=== PATIENT | male | born 1945 | race African-American/Black ===

== ENCOUNTER 2016-07-26 06:19 | Emergency (ER) | payer BC, MEDICARE ==
--- NOTE | 2016-07-26 06:47 | ED Physician Chart ---
Chief Complaint/HPI - Patient Information Date Seen:: 07/26/16 Time Seen:: 06:20 Chief Complaint:: Near-Syncope History of Present Illness:: Onset x 1/2 hour [employer] while driving, pt developed near-syncope, vertigo, generalized weakness, double/blurred vision, dizziness, paresthesias, anxious, nervousness, and felt like hyperventillating; Denies Chest Pain, dyspnea, Abdominal Pain, A/N/V/D/C, fever, chills, urinary s/s, LOC, or syncope Allergies:: Allergies Allergy/AdvReac Type Severity Reaction Status Date / Time No Known Allergies Allergy Verified 07/26/16 06:23 Vitals:: Vital Signs - 8 hr 07/26/16 06:20 Temp 98.5 F HR 90 RR 20 BP 143/83 O2 Sat % 98 Historian:: Patient, Family Member Review:: Nurse's Note Reviewed Review of Systems - Review of Systems General/Constitutional: Fever, Chills, No weight loss, Weakness, No diaphoresis , No edema, No loss of appetite Skin: No skin lesions, No rash, No bruising Head: Headache, No light-headedness Eyes: Acuity change, No pain, Diplopia ENT: No earache, Nasal drainage, No sore throat, No tinnitus Neck: No neck pain, No swelling, No thyromegaly, No stiffness, No mass noted Cardio Vascular: No chest pain, Palpitations, No PND, No orthopnea, No edema Pulmonary: No SOB, Cough, No sputum, No wheezing GI: Nausea, Vomiting, Diarrhea, No pain, No melena, No hematochezia, Constipation, No hematemesis G/U: No dysuria, No frequency, No hematuria Musculoskeletal: Bone or joint pain, No back pain, No muscle pain Endocrine: No polyuria, No polydipsia Psychiatric: No prior psych history, No depression, No anxiety, No suicidal ideation, No homicidal ideation, No auditory hallucination, No visual hallucination Hematopoietic: No bruising, No lymphadenopathy Allergic/Immuno: No urticaria, No angioedema Neurological: No syncope, No focal symptoms, Weakness, Paresthesia, Headache, No seizure, Dizziness, No confusion, Vertigo Past Medical History - Past Medical History Obtainable: Yes Past Medical History: Dyslipidemia, ESRD Family History: Diabetes Melitus, HTN Social History: Non Smoker, No Alcohol, No Drug Use, Surgical History: None Psychiatricy History: None Medication: Reviewed Family Medical History - Family Member Mother History Unknown: Yes Physical Exam - Physical Examination General/Constitutional: Awake, Well-developed, well-nourished, Alert, No distress, GCS 15, Non-toxic appearing, Ambulatory Head: Atraumatic Eyes: Lids, conjuctiva normal, PERRL, EOMI Skin: Nl inspection, No rash, No skin lesions, No ecchymosis, Well hydrated, No lymphadenopathy ENMT: External ears, nose nl, Nasal exam nl, Lips, teeth, gums nl Neck: Nontender, Full ROM w/o pain, No JVD, No nuchal rigidity, No bruit, No mass, No stridor Respiratory: Nl effort/Exclusion, Clear to Auscultation, No Wheeze/Rhonchi/Rales Cardio Vascular: RRR, No murmur, gallop, rubs, NL S1 S2 GI: No tenderness/rebounding/guarding, No organomegaly, No hernia, Normal BS's, Nondistended, No mass/bruits, No McBurney tenderness : No CVA tenderness Extremities: No tenderness or effusion, Full ROM, normal strength in all extremities, No edema, Normal digits & nails Neuro/Psych: Alert/oriented, DTR's symmetric, Normal sensory exam, Normal motor strength, Judgement/insight normal, Mood normal, Normal gait, No focal deficits Misc: normal gait, Normal back, No paraspinal tenderness ED Septic Shock - . Is Septic Shock (SBP<90, OR Lactate>4 mmol\L) present?: No - <6hrs of presentation: Vital Signs: Vital Signs - 8 hr 07/26/16 06:20 Temp 98.5 F HR 90 RR 20 BP 143/83 O2 Sat % 98
[2016-07-26 07:20] LABS: % BASOPHILS 0.7 % (0.0-2.0); % EOSINOPHILS 2.9 % (0.0-5.0); % LYMPHOCYTES 19.5 % (20.0-50.0); % MONOCYTES 6.3 % (2.0-10.0); % NEUTROPHILS 70.6 % (40.0-80.0); HEMATOCRIT 38.1 % (39.0-49.0); HEMOGLOBIN 12.6 gm/dL (12.6-17.4); MEAN CELL VOLUME 95.9 fl (80-99); MEAN CORPUSCULAR HEMOGLOBIN 31.8 pg (27.0-31.0); MEAN CORPUSCULAR HGB CONC 33.1 pg (28.0-36.0); MEAN PLATELET VOLUME 7.9 fl; NEUTROPHILE ABSOLUTE 6.4 Th/cmm (1.8-8.0); PLATELET COUNT 275 Th/cmm (150-400); RED BLOOD COUNT 3.97 Mil/cmm (3.80-5.80); RED CELL DISTRIBUTION WIDTH 12.8 % (11.5-20.0); WHITE BLOOD COUNT 9.2 Th/cmm (4.8-10.8)
[2016-07-26 07:28] LABS: INR 0.9 (0.5-1.4); PROTHROMBIN TIME (TEST) 9.4 SECONDS (9.5-11.5)
[2016-07-26 07:32] LABS: ALB/GLOB RATIO 1.5 (1.0-1.8); ALKALINE PHOSPHATASE 55 U/L (34-104); ANION GAP 8.5 (7.0-16.0); BILIRUBIN,TOTAL 0.5 mg/dL (0.3-1.0); BUN - UREA NITROGEN 16 mg/dL (7-25); BUN/CREATININE RATIO 17.8; CALCIUM SERUM 9.4 mg/dL (8.6-10.3); CARBON DIOXIDE 25.6 mEq/L (21.0-31.0); CHLORIDE 102 mEq/L (98-107); CHOLESTEROL 218 mg/dL (<200); CREATININE - SERUM 0.9 mg/dL (0.7-1.3); GLUCOSE 182 mg/dL (70-105); POTASSIUM SERUM 4.1 mEq/L (3.5-5.1); SGOT 40 U/L (13-39); SGPT/ALT 41 U/L (7-52); SODIUM SERUM 132 mEq/L (136-145); TRIGLYCERIDES 286 mg/dL (<150)
[2016-07-26 07:35] LABS: TROP I < 0.01 ng/mL (0.01-0.05)
[2016-07-26 07:48] LABS: BNP < 5.0 pg/mL (5.0-100.0)
[2016-07-26 07:56] LABS: CREATINE KINASE MB 4.7 ng/mL (0.6-6.3)
--- NOTE | 2016-07-26 08:18 | Diagnostic Imaging Report ---
CT scan of the brain without intravenous contrast HISTORY: Stroke, CVA Total DLP equals 673 CTDI equals 35.8 Axial sections were obtained from the base of the skull to the vertex. There is a prominent ventricular system size along with prominence of cerebral sulci and subarachnoid cisterns reflecting atrophy. No acute parenchymal abnormalities. No intracerebral hemorrhage. No mass effect or shift of midline structures. No extra-axial masses or abnormal fluid collections IMPRESSION: 1. No acute abnormalities 2. Mild cerebral atrophy
--- NOTE | 2016-07-26 08:54 | General Progress Note ---
Subjective - Review of Systems Service Date: 07/26/16 Events since last encounter: cc:weakness HPI: pt seen initially w initial h+p by dr mcmillan. he was drivig in his car at 6am and felt onset of weak and dizzy and near- syncopal sensation. no cp. no sob. no JARA. no palpitations. Pt had [place] and was travelling back to [place] w /sis in law when this occurred. He is still not feeling back to [facility] as of 8;50am. no recent fever or illness. no trauma. pt has known hx of high cholesterol (but denies esrd as documented by Dr Gomez) ..denies other pmh including htn or cva or mi or cad. no prior sz or snycope pt denies etoh or smoking or drug use. PE alert/nad. mild htn. mild/mod obese cv rrr no m pulm- cta b abd- s/nt/pos nabs extr no edema neuro- nrml str/sens, eomi, perrla, nrml 2-12 cn, nrml neuro exam. alert- ok historian. fully oriented. RESULTS: ecg nsr 60, no ectopy, nrml st segs. qrs -72. ct head- atrophy, no bleed. LABS: Laboratory Tests 07/26/16 07/26/16 07/26/16 07:10 07:10 07:10 WBC 9.2 RBC 3.97 Hgb 12.6 Hct 38.1 L MCV 95.9 MCH 31.8 H MCHC Differential 33.1 RDW 12.8 Plt Count 275 MPV 7.9 Neutrophils % 70.6 Lymphocytes % 19.5 L Monocytes % 6.3 Eosinophils % 2.9 Basophils % 0.7 PT 9.4 L INR 0.90 Sodium 132 L Potassium 4.1 Chloride 102 Carbon Dioxide 25.6 Anion Gap 8.5 BUN 16 Creatinine 0.9 Est GFR ( Amer) TNP Est GFR (Non-Af Amer) TNP BUN/Creatinine Ratio 17.8 Glucose 182 H Hemoglobin A1c % Calcium 9.4 Total Bilirubin 0.5 AST 40 H ALT 41 Alkaline Phosphatase 55 Creatine Kinase 237 H CK-MB (CK-2) 4.7 Troponin I B-Natriuretic Peptide Total Protein 7.1 Albumin 4.3 Globulin 2.8 Albumin/Globulin Ratio 1.5 Triglycerides 286 H Cholesterol 218 H LDL Cholesterol Direct 128 HDL Cholesterol 53 07/26/16 07/26/16 07:10 07:10 WBC RBC Hgb Hct MCV MCH MCHC Differential RDW Plt Count MPV Neutrophils % Lymphocytes % Monocytes % Eosinophils % Basophils % PT INR Sodium Potassium Chloride Carbon Dioxide Anion Gap BUN Creatinine Est GFR ( Amer) Est GFR (Non-Af Amer) BUN/Creatinine Ratio Glucose Hemoglobin A1c % 5.2 Calcium Total Bilirubin AST ALT Alkaline Phosphatase Creatine Kinase CK-MB (CK-2) Troponin I < 0.01 L B-Natriuretic Peptide < 5.0 L Total Protein Albumin Globulin Albumin/Globulin Ratio Triglycerides Cholesterol LDL Cholesterol Direct HDL Cholesterol REASSESSMENT: 8;57am results reviewed w pt. advised admission. pt initially agreed w admission...then began wavering about decision...says he is worried about his mom who was recently put in NH/rehab from hospital. d/w pt concerns about arrythmia or tia or untxd dm / untxd htn and assisted risks... Pt is making plans to fu w pmd. he doesnt feel quite right again but I see no obvious major focal neurologic change. We have discussed risks/reasons for admission. I have answered all qs of pt and family. DX: near syncope of uncertain etiology 2 new onset-untreated diabetes 3 borderline HTN Dispo: leaving AMA Condition: unchanged Objective - Results Result Diagrams: 07/26/16 07:10 07/26/16 07:10 Recent Labs: Laboratory Last Values WBC 9.2 Th/cmm (4.8-10.8) 07/26/16 07:10 RBC 3.97 Mil/cmm (3.80-5.80) 07/26/16 07:10 Hgb 12.6 gm/dL (12.6-17.4) 07/26/16 07:10 Hct 38.1 % (39.0-49.0) L 07/26/16 07:10 MCV 95.9 fl (80-99) 07/26/16 07:10 MCH 31.8 pg (27.0-31.0) H 07/26/16 07:10 MCHC Differential 33.1 pg (28.0-36.0) 07/26/16 07:10 RDW 12.8 % (11.5-20.0) 07/26/16 07:10 Plt Count 275 Th/cmm (150-400) 07/26/16 07:10 MPV 7.9 fl 07/26/16 07:10 Neutrophils % 70.6 % (40.0-80.0) 07/26/16 07:10 Lymphocytes % 19.5 % (20.0-50.0) L 07/26/16 07:10 Monocytes % 6.3 % (2.0-10.0) 07/26/16 07:10 Eosinophils % 2.9 % (0.0-5.0) 07/26/16 07:10 Basophils % 0.7 % (0.0-2.0) 07/26/16 07:10 PT 9.4 SECONDS (9.5-11.5) L 07/26/16 07:10 INR 0.90 (0.5-1.4) 07/26/16 07:10 Sodium 132 mEq/L (136-145) L 07/26/16 07:10 Potassium 4.1 mEq/L (3.5-5.1) 07/26/16 07:10 Chloride 102 mEq/L (98-107) 07/26/16 07:10 Carbon Dioxide 25.6 mEq/L (21.0-31.0) 07/26/16 07:10 Anion Gap 8.5 (7.0-16.0) 07/26/16 07:10 BUN 16 mg/dL (7-25) 07/26/16 07:10 Creatinine 0.9 mg/dL (0.7-1.3) 07/26/16 07:10 Est GFR ( Amer) TNP 07/26/16 07:10 Est GFR (Non-Af Amer) TNP 07/26/16 07:10 BUN/Creatinine Ratio 17.8 07/26/16 07:10 Glucose 182 mg/dL (70-105) H 07/26/16 07:10 Calcium 9.4 mg/dL (8.6-10.3) 07/26/16 07:10 Total Bilirubin 0.5 mg/dL (0.3-1.0) 07/26/16 07:10 AST 40 U/L (13-39) H 07/26/16 07:10 ALT 41 U/L (7-52) 07/26/16 07:10 Alkaline Phosphatase 55 U/L (34-104) 07/26/16 07:10 Creatine Kinase 237 U/L (30-223) H 07/26/16 07:10 CK-MB (CK-2) 4.7 ng/mL (0.6-6.3) 07/26/16 07:10 Troponin I < 0.01 ng/mL (0.01-0.05) L 07/26/16 07:10 B-Natriuretic Peptide < 5.0 pg/mL (5.0-100.0) L 07/26/16 07:10 Total Protein 7.1 gm/dL (6.0-8.3) 07/26/16 07:10 Albumin 4.3 gm/dL (4.2-5.5) 07/26/16 07:10 Globulin 2.8 gm/dL 07/26/16 07:10 Albumin/Globulin Ratio 1.5 (1.0-1.8) 07/26/16 07:10 Triglycerides 286 mg/dL (<150) H 07/26/16 07:10 Cholesterol 218 mg/dL (<200) H 07/26/16 07:10 LDL Cholesterol Direct 128 mg/dL (75-193) 07/26/16 07:10 HDL Cholesterol 53 mg/dL (23-92) 07/26/16 07:10 - Physical Exam Vitals and I&O: Vital Signs Temp 97.9 F 07/26/16 08:02 Pulse 78 07/26/16 08:02 Resp 16 07/26/16 08:02 BP 142/77 07/26/16 08:02 Pulse Ox 98 07/26/16 08:02 Intake & Output 07/25/16 07/26/16 07/26/16 18:59 06:59 18:59 Weight (lbs) 96.162 kg
--- NOTE | 2016-07-26 11:26 | Diagnostic Imaging Report ---
Portable chest x-ray HISTORY: Pain There is a poor inspiration. The heart appears somewhat enlarged. No acute focal pulmonary processes. No hilar or mediastinal abnormalities. IMPRESSION: 1. No acute focal pulmonary processes 2. Cardiomegaly
== END 2016-07-26 09:00 | disposition left against medical advice (07) ==
LOC: ER 06:19
DX: R55 Syncope and collapse (principal); N18.6 End stage renal disease; E78.5 Hyperlipidemia, unspecified
CPT/HCPCS: 36415-UA; 70450-TC; 71010-TC; 80053-TC; 80061-TC; 82550-TC; 82553; 83036-90; 83880-TC; 84484-TC; 85025-TC; 85610-TC; 93005; 94760